=== PATIENT | female | born 1975 | race Caucasian/White ===

== ENCOUNTER 2017-06-04 13:16 | Emergency (ER) | payer OTHER ==
[~2017-06-04] VITALS: Ht 167.6 cm; Wt 92.0 kg
[2017-06-04] MEDS ORDERED: SODIUM CHLORIDE 0.9% 1,000ML IVBOLUS ONE (14:00)
[2017-06-04 14:09] LABS: BLOOD UREA NITROGEN 9 mg/dL (7-18)
[2017-06-04 17:30] VITALS: BP 145/87
== END 2017-06-04 17:59 | disposition home or self-care (01) ==
LOC: ED 17:45
DX: O20.0 Threatened abortion (principal); O23.41 Unspecified infection of urinary tract in pregnancy, first trimester; R31.9 Hematuria, unspecified; O24.111 Pre-existing type 2 diabetes mellitus, in pregnancy, first trimester; E11.9 Type 2 diabetes mellitus without complications; O10.911 Unspecified pre-existing hypertension complicating pregnancy, first trimester; Z3A.14 14 weeks gestation of pregnancy; I10 Essential (primary) hypertension
CPT/HCPCS: 36415; 76805; 80048; 81001; 82040; 84702; 85025; 86850; 86870; 86900; 87077; 87086; 96360; 99285; J7030; 87186

== ENCOUNTER 2017-06-06 03:33 | Emergency (ER) | payer OTHER ==
[~2017-06-06] VITALS: Ht 167.6 cm; Wt 92.1 kg
[2017-06-06 03:34] VITALS: BP 166/83
[2017-06-06 04:47] LABS: ASPARTATE AMINO TRANSFERASE 11 U/L (15-37); BLOOD UREA NITROGEN 10 mg/dL (7-18)
[2017-06-06] MEDS ORDERED: HYDROmorphone 1 MG/ML, 1ML ONE (05:57)
[2017-06-06] MEDS ORDERED: HYDROmorphone 1 MG/ML, 1ML IM ONE (06:00)
== END 2017-06-06 06:58 | disposition home or self-care (01) ==
LOC: ED 04:11
DX: O20.0 Threatened abortion (principal); E11.9 Type 2 diabetes mellitus without complications; I10 Essential (primary) hypertension
CPT/HCPCS: 36415; 76801; 80053; 81003; 84702; 85025; 86850; 86870; 86900